=== PATIENT | female | born 2000 | race Caucasian/White ===

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

== ENCOUNTER 2018-06-18 12:03 | Emergency (ER) | payer SELFPAY ==
[~2018-06-18] VITALS: Ht 149.9 cm; Wt 74.8 kg
[~2018-06-18 12:03] MED LIST changes: +RANI150T21 PO
[2018-06-18 12:20] VITALS: BP 119/62
[2018-06-18 12:55] LABS: INFLUENZA A PATIENT NEGATIVE (NEGATIVE); INFLUENZA B PATIENT NEGATIVE (NEGATIVE)
[2018-06-18] MEDS ORDERED: BENZ100C PO (13:30)
--- NOTE | 2018-06-18 13:31 | PHYS DOC ---
Past Medical History Past Medical History: No Pertinent History Past Surgical History: No Surgical History Alcohol Use: None Drug Use: None Adult General Chief Complaint Chief Complaint: FLU SYMPTOM HPI HPI Patient is a 18 year old female who presents to the ER with complaints of flu like symptoms for the last week. Pt states she has experienced sweating and chills but has not measured her temperature. She reports a dry cough, body aches , fatigue, and mild sore throat. She denies any abdominal pain, nausea, vomiting , diarrhea, or back pain. Pt states she is currently taking bactrim for a recent UTI, she denies any dysuria or frequency and states that her UTI sx have improved. Review of Systems Review of Systems Constitutional: See HPI Eyes: Denies redness, or eye pain [] HENT: See HPI Respiratory: Denies wheezing, or shortness of breath; See HPI Cardiovascular: No additional information not addressed in HPI [] GI: Denies abdominal pain, nausea, vomiting, or diarrhea [] : Denies dysuria or hematuria [] Musculoskeletal: Denies back pain Integument: Denies rash or skin lesions [] Neurologic: Denies headache, focal weakness or sensory changes [] All other systems were reviewed and found to be within normal limits, except as documented in this note. Allergies Allergies Allergies Coded Allergies Type Severity Reaction Last Updated Verified No Known Drug Allergies 08/16/16 No Physical Exam Physical Exam Constitutional: Well developed, well nourished, no acute distress, non-toxic appearance. [] HENT: Normocephalic, atraumatic, bilateral external ears normal, bilateral TMs normal, posterior pharynx normal, oropharynx moist, no oral exudates, nose normal. [] Eyes: conjunctiva normal, no discharge. [] Neck: Normal range of motion, no tenderness, supple, no stridor. [] Cardiovascular:Heart rate regular rhythm, no murmur [] Lungs & Thorax: Bilateral breath sounds clear to auscultation [] Skin: Warm, dry, no erythema, no rash. [] Neurologic: Alert and oriented X 3, normal motor function, normal sensory function, no focal deficits noted. [] Psychologic: Affect normal, judgement normal, mood normal. [] Current Patient Data Vital Signs Vital Signs Date Time Temp Pulse Resp B/P (MAP) Pulse Ox O2 Delivery O2 Flow Rate FiO2 06/18/18 12:20 98.4 99 18 119/62 (81) 98 Room Air 98.4 Lab Values Laboratory Tests Test 06/18/18 12:30 Influenza Type A Antigen Negative (NEGATIVE) Influenza Type B Antigen Negative (NEGATIVE) EKG EKG [] Radiology/Procedures Radiology/Procedures influenza testing negative[] Course & Med Decision Making Course & Med Decision Making Pertinent Labs and Imaging studies reviewed. (See chart for details) [] Dragon Disclaimer Dragon Disclaimer This electronic medical record was generated, in whole or in part, using a voice recognition dictation system. Departure Departure Impression: Primary Impression: URI (upper respiratory infection) Disposition: HOME, SELF-CARE Condition: STABLE Referrals: BRENDAN JAQUEZ MD (PCP) Patient Instructions: Upper Respiratory Infection, Adult, [id number] Additional Instructions: Fill prescription(s) and use as directed. Cool mist humidifier in room at bedtime. Tylenol or ibuprofen prn pain/fever. Increase clear fluids. Avoid triggers such as smoke, fragrance, dust, and pollen. Follow-up with your primary care doctor if symptoms persist, return to the ER if symptoms worsen. Scripts Benzonatate (TESSALON PERLE) 100 Mg Capsule 1 CAP PO TID, #21 CAP 0 Refills Prov: DIYA PENG RUBBER TESTER 06/18/18 Problem Qualifiers Primary Impression: URI (upper respiratory infection) URI type: unspecified URI Qualified Codes: J06.9 - Acute upper respiratory infection, unspecified DIYA PENG RUBBER TESTER Jun 18, 2018 13:31
== END 2018-06-18 13:40 | disposition home or self-care (01) ==
LOC: ER 12:03
DX: J06.9 Acute upper respiratory infection, unspecified (principal)
CPT/HCPCS: 87804; 99283

== ENCOUNTER 2019-01-07 21:19 | Emergency (ER) | payer SELFPAY ==
[~2019-01-07] VITALS: Ht 152.4 cm; Wt 79.4 kg
[~2019-01-07 21:19] MED LIST changes: +BENZ100C PO; +RANI-376 PO; -RANI150T21 PO
[2019-01-07 22:45] VITALS: BP 95/67
[2019-01-07] MEDS ORDERED: DEXAMETHASONE 4 MG TABLET PO ONE (23:00)
--- NOTE | 2019-01-07 23:06 | PHYS DOC ---
Past Medical History Past Medical History: No Pertinent History (BRANDEN GILBERT APRN) Past Surgical History: No Surgical History (BRANDEN GILBERT APRN) Alcohol Use: None Drug Use: None (BRANDEN GILBERT APRN) Adult General Chief Complaint Chief Complaint: FLU SYMPTOM HPI HPI Patient is a 18 year old female who presents with a sore throat been ongoing for 3 days. Associated symptoms include fever, runny nose, cough, congestion. Rates her pain as 5 out of 10 in severity, has not taken any medicine for the pain. States she's been having difficulty eating due to the pain. (BRANDEN GILBERT APRN) Review of Systems Review of Systems Constitutional: Reports fever or chills [] Eyes: Denies change in visual acuity, redness, or eye pain [] HENT: Reports nasal congestion and sore throat [] Respiratory: Reports cough, denies shortness of breath. Cardiovascular: No additional information not addressed in HPI [] GI: Denies abdominal pain, nausea, vomiting, bloody stools or diarrhea [] : Denies dysuria or hematuria [] Musculoskeletal: Denies back pain or joint pain [] Integument: Denies rash or skin lesions [] Neurologic: Denies headache, focal weakness or sensory changes [] Endocrine: Denies polyuria or polydipsia [] Complete systems were reviewed and found to be within normal limits, except as documented in this note. (BRANDEN GILBERT APRN) Current Medications Current Medications Current Medications Medications (Trade) Dose Ordered Sig/Bryan Start Time Stop Time Status Last Admin Dose Admin Dexamethasone (Decadron) 10 mg 1X ONCE 01/07/19 23:00 01/07/19 23:07 DC 01/07/19 23:23 10 MG (JUDIT HERNANDES MD) Allergies Allergies Allergies Coded Allergies Type Severity Reaction Last Updated Verified No Known Drug Allergies 08/16/16 No (JUDIT HERNANDES MD) Physical Exam Physical Exam Constitutional: Well developed, well nourished, no acute distress, non-toxic appearance. [] HENT: Normocephalic, atraumatic, bilateral external ears normal, oropharynx moist, tonsils are 3+/4, uvula is midline, no oral exudates, nose normal. [] Eyes: PERRLA, EOMI, conjunctiva normal, no discharge. [] Neck: Normal range of motion, no tenderness, supple, no stridor. [] Cardiovascular:Heart rate regular rhythm, no murmur [] Lungs & Thorax: Bilateral breath sounds clear to auscultation [] Abdomen: Bowel sounds normal, soft, no tenderness, no masses, no pulsatile masses. [] Skin: Warm, dry, no erythema, no rash. [] Back: No tenderness, no CVA tenderness. [] Extremities: No tenderness, no cyanosis, no clubbing, ROM intact, no edema. [] Neurologic: Alert and oriented X 3, normal motor function, normal sensory function, no focal deficits noted. [] Psychologic: Affect normal, judgement normal, mood normal. [] (BRANDEN GILBERT APRN) Current Patient Data Vital Signs Vital Signs Date Time Temp Pulse Resp B/P (MAP) Pulse Ox O2 Delivery O2 Flow Rate FiO2 01/07/19 22:45 99.3 68 20 95/67 (76) 95 Room Air 99.3 (JUDIT HERNANDES MD) Lab Values Laboratory Tests Test 01/07/19 23:09 POC Urine HCG, Qualitative Hcg negative (Negative) (JUDIT HERNANDES MD) Lab Values Laboratory Tests Test 01/07/19 23:09 POC Urine HCG, Qualitative Hcg negative (Negative) (BRANDEN GILBERT APRN) EKG EKG [] (BRANDEN GILBERT APRN) Radiology/Procedures Radiology/Procedures [] (BRANDEN GILBERT APRN) Course & Med Decision Making Course & Med Decision Making Pertinent Labs and Imaging studies reviewed. (See chart for details) Will give Dexamethasone, check strep test, and urine . is negative. Strep is positive. Will place on antibiotic and d/c home. (BRANDEN GILBERT APRN) Course & Med Decision Making Staff Physician Addendum: I was working in the ER during the course of this patient's visit. I was available for consultation as needed, but I was not directly involved in the care of this patient. (JUDIT HERNANDES MD) Dragon Disclaimer Dragon Disclaimer This electronic medical record was generated, in whole or in part, using a voice recognition dictation system. (BRANDEN GILBERT APRN) Departure Departure Impression: Primary Impression: Strep throat Disposition: HOME, SELF-CARE Condition: STABLE Referrals: BRENDAN JAQUEZ MD (PCP) Patient Instructions: Strep Throat, Strep Throat, Group A Streptococcus Additional Instructions: Thank you for visiting [facility]. We appreciate you trusting us with your care. If any additional problems come up don't hesitate to return to visit us. Please follow up with your primary care provider so they can plan additional care if needed and know about the problem that you had. If symptoms worsen come back to the Emergency Department. Any concerning symptoms that start such as chest pain, shortness of air, weakness or numbness on one side of the body, running high fevers or any other concerning symptoms return to the ER. You have been prescribed an antibiotic today to help fight your infection. Please take all of the antibiotic as directed. If after 48 hours the infection is not improving, please return for more care. If the infection worsens, return to ER for additional care. Scripts Amoxicillin (AMOXICILLIN) 500 Mg Tablet 1 TAB PO BID for 10 Days, #20 TAB Prov: BRANDEN IGLBERT APRN 01/07/19 BRANDEN GILBERT APRN Jan 07, 2019 23:06 JUDIT HERNANDES MD Jan 08, 2019 05:33
[2019-01-07] MEDS ORDERED: AMOX500T PO (23:29)
== END 2019-01-08 00:07 | disposition home or self-care (01) ==
LOC: ER 21:19
DX: J02.0 Streptococcal pharyngitis (principal); B95.5 Unspecified streptococcus as the cause of diseases classified elsewhere
CPT/HCPCS: 81025; 87880; 99283; J8540

== ENCOUNTER 2019-06-11 13:39 | Emergency (ER) | payer SELFPAY ==
[~2019-06-11] VITALS: Ht 154.9 cm; Wt 84.5 kg
[~2019-06-11 13:39] MED LIST changes: +AMOX500T PO
[2019-06-11 14:20] VITALS: BP 138/77
--- NOTE | 2019-06-11 14:46 | PHYS DOC ---
Past Medical History Past Medical History: No Pertinent History Past Surgical History: No Surgical History Alcohol Use: None Drug Use: None Adult General Chief Complaint Chief Complaint: FLU SYMPTOM HPI HPI Patient is a 19 year old female who presents with fever, cough, sore throat, runny nose, congestion, body aches, headaches been ongoing for week. The patient states she has been drinking water at home and has been helping. Patient also should get plenty rest. She been also taking TheraFlu. She states getting better. Review of Systems Review of Systems Constitutional: Reports fever. Eyes: Denies change in visual acuity, redness, or eye pain [] HENT: Reports nasal congestion and runny nose. Reports sore throat. Respiratory: Reports cough. Cardiovascular: No additional information not addressed in HPI [] GI: Denies abdominal pain, nausea, vomiting, bloody stools or diarrhea [] : Denies dysuria or hematuria [] Musculoskeletal: Denies back pain or joint pain [] Integument: Denies rash or skin lesions [] Neurologic: Reports headache, denies focal weakness or sensory changes [] Endocrine: Denies polyuria or polydipsia [] Complete systems were reviewed and found to be within normal limits, except as documented in this note. Allergies Allergies Allergies Coded Allergies Type Severity Reaction Last Updated Verified No Known Drug Allergies 08/16/16 No Physical Exam Physical Exam Constitutional: Well developed, well nourished, no acute distress, non-toxic appearance. [] HENT: Normocephalic, atraumatic, bilateral external ears normal, bilateral tympanic membranes are pearly griffith, oropharynx moist, no oral exudates, nose normal. [] Eyes: PERRLA, EOMI, conjunctiva normal, no discharge. [] Neck: Normal range of motion, no tenderness, supple, no stridor. [] Cardiovascular:Heart rate regular rhythm, no murmur [] Lungs & Thorax: Bilateral breath sounds clear to auscultation [] Abdomen: Bowel sounds normal, soft, no tenderness, no masses, no pulsatile masses. [] Skin: Warm, dry, no erythema, no rash. [] Back: No tenderness, no CVA tenderness. [] Extremities: No tenderness, no cyanosis, no clubbing, ROM intact, no edema. [] Neurologic: Alert and oriented X 3, normal motor function, normal sensory function, no focal deficits noted. [] Psychologic: Affect normal, judgement normal, mood normal. [] Current Patient Data Vital Signs Vital Signs Date Time Temp Pulse Resp B/P (MAP) Pulse Ox O2 Delivery O2 Flow Rate FiO2 06/11/19 14:20 98.4 58 16 138/77 (97) 97 Room Air 98.4 EKG EKG [] Radiology/Procedures Radiology/Procedures [] Course & Med Decision Making Course & Med Decision Making Pertinent Labs and Imaging studies reviewed. (See chart for details) Patient appears to have had the flu. The patient seems to be improving. Discussed with patient to keep doing what she has been doing and to add Ibuprofen and Tylenol for Fever. Discussed zyrtec for runny nose. A medical screening exam was performed on this patient and the patient does not appear to be having a medical emergency. Her symptoms are not of sufficient severity and within reasonable medical probability it is unlikely the absence of immediate medical attention would result in placing the health of the individual (or, with respect to a woman, the health of the woman or her unborn child) in serious jeopardy, serious impairment to bodily functions, or serious dysfunction of any bodily organ or part. If , the patient is not in labor Dragon Disclaimer Dragon Disclaimer This electronic medical record was generated, in whole or in part, using a voice recognition dictation system. Departure Departure Impression: Primary Impression: Influenza Additional Impression: Encounter for medical screening examination Disposition: 01 HOME, SELF-CARE Condition: STABLE Referrals: BRENDAN JAQUEZ MD (PCP) Patient Instructions: Influenza A (H1N1), Medical Screening Exam Additional Instructions: Thank you for visiting [facility]. We appreciate you trusting us with your care. If any additional problems come up don't hesitate to return to visit us. Please follow up with your primary care provider so they can plan additional care if needed and know about the problem that you had. If symptoms worsen come back to the Emergency Department. Any concerning symptoms that start such as chest pain, shortness of air, weakness or numbness on one side of the body, running high fevers or any other concerning symptoms return to the ER. Please drink plenty of water, and get plenty rest. Please get your flu shot next year. Return if unable to keep fluids down. Problem Qualifiers BRANDEN GILBERT APRN Jun 11, 2019 14:46
== END 2019-06-11 15:04 | disposition home or self-care (01) ==
LOC: ER 13:39
DX: J10.1 Influenza due to other identified influenza virus with other respiratory manifestations (principal); R09.81 Nasal congestion; R51 Headache; R50.9 Fever, unspecified; R09.89 Other specified symptoms and signs involving the circulatory and respiratory systems; R05 Cough
CPT/HCPCS: 99281

== ENCOUNTER 2019-08-10 10:54 | Emergency (ER) | payer SELFPAY ==
[~2019-08-10] VITALS: Ht 160 cm; Wt 68.0 kg
[2019-08-10 11:05] VITALS: BP 120/73
[2019-08-10] MEDS ORDERED: POLY10DR3 EACHEYE (11:20)
--- NOTE | 2019-08-10 11:21 | PHYS DOC ---
Past Medical History Past Medical History: No Pertinent History Past Surgical History: No Surgical History Smoking Status: Never Smoker Alcohol Use: None Drug Use: None Adult General Chief Complaint Chief Complaint: OTHER COMPLAINTS HPI HPI Patient is a 19 year old Female who presents with 2 weeks ago began with flulike symptoms such as stuffy nose, cough, body aches and she states that since those symptoms have mostly resolved. She states now she has a is that is reddened with discharge for the last 2 days. She states is also itchy. Review of Systems Review of Systems Eyes: Denies change in visual acuity. + Conjunctiva redness, denies eye pain [] All other systems were reviewed and found to be within normal limits, except as documented in this note. Allergies Allergies Allergies Coded Allergies Type Severity Reaction Last Updated Verified No Known Drug Allergies 08/16/16 No Physical Exam Physical Exam Constitutional: Well developed, well nourished, no acute distress, non-toxic appearance. [] HENT: Normocephalic, atraumatic, bilateral external ears normal, oropharynx moist, no oral exudates, nose normal. [] Eyes: PERRLA, EOMI, conjunctiva pink/ red, no discharge. [] Neck: Normal range of motion, no tenderness, supple, no stridor. [] Cardiovascular:Heart rate regular rhythm, no murmur [] Lungs & Thorax: Bilateral breath sounds clear to auscultation [] Abdomen: Bowel sounds normal, soft, no tenderness, no masses, no pulsatile masses. [] Skin: Warm, dry, no erythema, no rash. [] Back: No tenderness, no CVA tenderness. [] Extremities: No tenderness, no cyanosis, no clubbing, ROM intact, no edema. [] Neurologic: Alert and oriented X 3, normal motor function, normal sensory function, no focal deficits noted. [] Psychologic: Affect normal, judgement normal, mood normal. [] EKG EKG [] Radiology/Procedures Radiology/Procedures [] Course & Med Decision Making Course & Med Decision Making Pertinent Labs and Imaging studies reviewed. (See chart for details) Alert and oriented. Right conjunctivae is pink. No drainage is seen at this time. Patient states there is clear to yellow drainage coming from the eyes in the mornings. She denies any visual changes. She states is very itchy. PERRLA. Patient denies nausea, vomiting, abdominal pain, headache, dizziness, visual changes, numbness tingling, chest pain, shortness of air, diarrhea. Ambulatory with steady gait. Skin pink warm and dry. Speaks in full clear sentences. Denies injury to the eye or getting anything in her eye. Denies eye pain or photophobia. No swelling or redness around the eye. [] Dragon Disclaimer Dragon Disclaimer This electronic medical record was generated, in whole or in part, using a voice recognition dictation system. Departure Departure Impression: Primary Impression: Conjunctivitis Disposition: 01 HOME, SELF-CARE Condition: STABLE Referrals: NO PCP (PCP) Patient Instructions: Conjunctivitis (Viral and Bacterial) Additional Instructions: Follow up with primary care provider. Wash your hands often. Try to stay away from smal children or the elderly as this is very contagious. Scripts Polymyxin B Sulf/Trimethoprim (POLYMYXIN B-TMP EYE DROPS) 10 Ml Drops 1 DROP EACHEYE QID for 7 Days, #10 ML 0 Refills Prov: GHADA ALVAREZ APRN 08/10/19 Problem Qualifiers Primary Impression: Conjunctivitis Conjunctivitis type: acute Acute conjunctivitis type: unspecified Laterality: right Qualified Codes: H10.31 - Unspecified acute conjunctivitis, right eye GHADA ALVAREZ APRN Aug 10, 2019 11:21
== END 2019-08-10 11:30 | disposition home or self-care (01) ==
LOC: ER 10:54
DX: H10.31 Unspecified acute conjunctivitis, right eye (principal); L53.9 Erythematous condition, unspecified; L29.9 Pruritus, unspecified
CPT/HCPCS: 99283

== ENCOUNTER 2021-04-19 13:51 | Emergency (ER) | payer OTHER ==
[~2021-04-19] VITALS: Ht 149.9 cm; Wt 88.8 kg
[~2021-04-19 13:51] MED LIST changes: +POLY10DR3 EACHEYE
[2021-04-19 14:35] VITALS: BP 139/63
[2021-04-19] MEDS ORDERED: DOXY100T PO (15:07)
--- NOTE | 2021-04-19 15:14 | PHYS DOC ---
Past Medical History Past Medical History: No Pertinent History Past Surgical History: No Surgical History Smoking Status: Never Smoker Alcohol Use: Rarely Drug Use: None General Adult EDM: Chief Complaint: BREAST PROBLEM HPI: HPI: Patient is a 21 year old female who presents with 1-2-day history of swelling in her right armpit. States that it is painful, tender to the touch. Has some overlying skin redness. Denies fever, chills, nausea, vomiting, or other systemic symptoms. States that she has had this a few times before in her left axilla, but those eventually improved on their own. None of those episodes were as severe as this 1. Has never sought medical care for this issue before. States that she is following up with the clinic for testing of potential breast lump as an outpatient, in her left breast. This is unrelated to her chief complaint for her visit today. Review of Systems: Review of Systems: Constitutional: Denies fever or chills. [] Eyes: Denies change in visual acuity. [] HENT: Denies nasal congestion or sore throat. [] Respiratory: Denies cough or shortness of breath. [] Cardiovascular: Denies chest pain or edema. [] GI: Denies abdominal pain, nausea, vomiting, bloody stools or diarrhea. [] : Denies dysuria. [] Musculoskeletal: Denies back pain or joint pain. [] Integument: Reports swelling in her right armpit Neurologic: Denies headache, focal weakness or sensory changes. [] Endocrine: Denies polyuria or polydipsia. [] Lymphatic: Denies swollen glands. [] Psychiatric: Denies depression or anxiety. [] Heart Score: C/O Chest Pain: No Allergies: Allergies: Allergies Coded Allergies Type Severity Reaction Last Updated Verified No Known Drug Allergies 08/16/16 No Physical Exam: PE: Constitutional: Well developed, well nourished, no acute distress, non-toxic appearance. [] HENT: Normocephalic, atraumatic, bilateral external ears normal, oropharynx moist, no oral exudates, nose normal. [] Eyes: PERRLA, EOMI, conjunctiva normal, no discharge. [] Neck: Normal range of motion, no tenderness, supple, no stridor. [] Cardiovascular:Heart rate regular rhythm, no murmur [] Lungs & Thorax: Bilateral breath sounds clear to auscultation [] Abdomen: Bowel sounds normal, soft, no tenderness, no masses, no pulsatile masses. [] Skin: Right axilla with a 1 x 1 cm area of induration and fullness. No fluctuance. Overlying erythema present. Exquisitely tender to the touch Back: No tenderness, no CVA tenderness. [] Extremities: No tenderness, no cyanosis, no clubbing, ROM intact, no edema. [] Neurologic: Alert and oriented X 3, normal motor function, normal sensory function, no focal deficits noted. [] Psychologic: Affect normal, judgement normal, mood normal. [] Current Patient Data: Vital Signs: Vital Signs Date Time Temp Pulse Resp B/P (MAP) Pulse Ox O2 Delivery O2 Flow Rate FiO2 04/19/21 14:35 98.3 73 16 139/63 (88) 100 Room Air 98.3 EKG: EKG: [] Radiology/Procedures: Radiology/Procedures: [id number] ultrasound shows what appears to be an isolated lymph node. No evidence of abscess. There was some soft tissue thickening/cobblestoning concerning for cellulitis [] Course & Med Decision Making: Course & Med Decision Making Pertinent Labs and Imaging studies reviewed. (See chart for details) Patient 21-year-old female presents with 1-2 days of right axilla swelling. Ultrasound shows what looks like a lymph node that is swollen and overlying cellulitis. No evidence of abscess. We will treat with doxycycline. No cat scratches, or other trauma or swelling to the right hand, arm or breast. Given that she has had history of swelling in her contralateral axilla, consider the diagnosis of hidradenitis suppurativa. Max Disclaimer: Max Disclaimer: This electronic medical record was generated, in whole or in part, using a voice recognition dictation system. Departure Departure Impression: Primary Impression: Swelling in right armpit Disposition: HOME / SELF CARE / HOMELESS Condition: STABLE Referrals: NO PCP (PCP) Additional Instructions: I am concerned that you have a skin infection in your right armpit. I think this may also represent a condition called hidradenitis suppurativa. Please take the full course of antibiotics, this should hopefully improve your pain. Since you do not have a PCP, please call the number for the [facility] at [phone]. He will need to continue to follow-up with the clinic that is doing the testing for your left breast lump. Scripts Doxycycline Hyclate (DOXYCYCLINE HYCLATE) 100 Mg Tablet 1 TAB PO BID for 7 Days, #14 TAB 0 Refills Prov: RADHA MORENO MD 04/19/21 RADHA MORENO MD Apr 19, 2021 15:14
== END 2021-04-19 15:32 | disposition home or self-care (01) ==
LOC: ER 13:51
DX: R22.31 Localized swelling, mass and lump, right upper limb (principal)
CPT/HCPCS: 99284